=== PATIENT | female | born 1940 | race Caucasian/White ===

== ENCOUNTER 2016-11-21 14:00 | Inpatient (IN) | payer OTHER, BC ==
[~2016-11-21] VITALS: Ht 157.5 cm; Wt 81.0 kg
[2016-11-21 14:27] LABS: CHLORIDE 101 mEq/L (99-109); POTASSIUM 4.1 mEq/L (3.7-5.4); SODIUM 143 mEq/L (136-147)
[2016-11-21 14:28] LABS: GLUCOSE 116 mg/dL (70-99)
[2016-11-21 14:30] LABS: ANION GAP 13 MEQ/L (2-14)
[2016-11-21 14:33] LABS: UREA NITROGEN (BUN) 23 mg/dL (9-23)
[2016-11-21 14:35] LABS: GFR ESTIMATE (CALCULATED) > 59 mL/min/
[2016-11-21 14:42] LABS: TROP-I INTERPRETATION NEGATIVE; TROPONIN-I 0.03 ng/mL (0.0-0.30)
[2016-11-21 14:48] LABS: BASE EXCESS 8.7 mEq/L (-3 to +3); BICARBONATE 34.4 mEq/L (22-26); CARBOXY HGB 1.5 % (0-5); COMMENTS - BLOOD GASES A+C+; METHEMOGLOBIN 0.9 % (0-1.5); PCO2 53 mm Hg (35-45); PO2 341 mm Hg (80-100); SITE RR; pH 7.42 (7.35-7.45)
[2016-11-21 14:49] LABS: DEVICE PB 890 MASK; FI02 100 %; MODE SPONT NIV; PEEP 5 CM/H20; PRES. SUPPORT 15 CM/H2O; TOTAL RESP RATE 28 resp/min
[2016-11-21 14:58] LABS: EOSINOPHIL (%) 0.1 % (0-5); HEMATOCRIT 32.7 % (36.0-46.0); IMMATURE GRANULOCYTE (%) 0.1 % (0.0-0.7); LYMPHOCYTE COUNT 1.8 K/uL (1.0-2.8); MCH 25.8 PG (29.0-34.0); MCHC 30.6 G/DL (30.0-36.0); MCV 84.5 FL (83-99); MEAN PLAT.VOLUME 9.4 uM^3 (9.5-12.4); MONOCYTE (%) 6.1 % (3-12); MONOCYTE COUNT 0.5 K/uL (0-0.8); NEUTROPHIL (%) 70.6 % (45-76); NEUTROPHIL COUNT 5.6 K/uL (1.8-6.4); PLATELET COUNT 444 K/uL (156-360); RBC DIS.WIDTH-CV 15.3 % (11.8-14.6); RBC DIS.WIDTH-SD 47.1 % (39-53); RED BLOOD COUNT 3.87 M/uL (3.80-5.20); WHITE BLOOD COUNT 7.9 K/uL (4.1-10.2)
[2016-11-21] MEDS ORDERED: VITAMIN E200 UNI2 PO (17:30)
[2016-11-21] MEDS ORDERED: THERAGRAN-M PR1 EAC1 PO (17:31)
[2016-11-21] MEDS ORDERED: OMEPRAZOLE20 M2 PO (17:31)
[2016-11-21] MEDS ORDERED: KLOR-CON M2020 MEQ PO (17:32)
[2016-11-21] MEDS ORDERED: CO Q-10100 MG PO (17:34)
[2016-11-21] MEDS ORDERED: VITAMIN B-6100 MG PO (17:34)
[2016-11-21] MEDS ORDERED: VITAMIN B CO1 TABLET PO (17:37)
[2016-11-21] MEDS ORDERED: COREG12.5 M1 PO (17:38)
[2016-11-21] MEDS ORDERED: VITAMIN D-32000 UNI2 PO (17:39)
[2016-11-21] MEDS ORDERED: FOLIC ACID1 MG PO (17:40)
[2016-11-21] MEDS ORDERED: IRON325 M1 PO (17:40)
[2016-11-21] MEDS ORDERED: FLORASTOR250 MG PO (17:41)
[2016-11-21] MEDS ORDERED: NEURONTIN100 MG PO (17:41)
[2016-11-21] MEDS ORDERED: MELATIN3 MG PO (17:42)
[2016-11-21] MEDS ORDERED: MAGOX 400400 MG PO (17:42)
[2016-11-21] MEDS ORDERED: FUROSEMIDE40 MG PO (17:43)
[2016-11-21] MEDS ORDERED: ATORVASTATIN CA20 MG PO (17:44)
[2016-11-21] MEDS ORDERED: COREG6.25 M1 PO (17:44)
[2016-11-21] MEDS ORDERED: EXTRA STRENGTH500 M1 PO (17:45)
[2016-11-21] MEDS ORDERED: TYLENOL REGULA325 MG PO (17:46)
[2016-11-21] MEDS ORDERED: DULCOLAX10 MG PR (17:47)
[2016-11-21] MEDS ORDERED: FLEET ENEMA-AD118 ML PR (17:48)
[2016-11-21] MEDS ORDERED: MILK OF MAGN PO (17:49)
[2016-11-21] MEDS ORDERED: DUONEB 2.5-0.5 M3 ML AEROSOL (17:50)
[2016-11-21 21:27] VITALS: BP 161/71
[2016-11-21 23:06] LABS: INFLUENZA A VIRAL ANTIGEN NEGATIVE; INFLUENZA B VIRAL ANTIGEN NEGATIVE
[2016-11-22] VITALS (7 sets, daily range): BP systolic 105–155; BP diastolic 56–80
[2016-11-22 00:15] LABS: ADD MIUA? YES; BILIRUBIN NEGATIVE; BLOOD SMALL; COLOR YELLOW ((YELLOW)); GLUCOSE (STRIP) NEGATIVE; KETONES 5; LEUKOCYTES NEGATIVE; NITRITE NEGATIVE; PROTEIN (STRIP) NEGATIVE; SPECIFIC GRAVITY 1.013 (1.000-1.030); UROBILINOGEN 0.2 MG/DL (0.2-1.0)
[2016-11-22 00:20] LABS: BACTERIA NONE SEEN /HPF; EPITHELIAL CELLS RARE /HPF; MUCUS TRACE /LPF; RED BLOOD CELLS 0-5 /HPF (0-5); UCUL ADDED? NO; WHITE BLOOD CELLS 0-5 /HPF (0-5)
[2016-11-22 02:00] LABS: METH RESISTANT S AUREUS PCR POSITIVE (NEGATIVE)
[2016-11-22 02:04] LABS: PROBE CHECK PASS
[2016-11-22 07:18] LABS: ALKALINE PHOSPHATASE 61 IU/L (3-129); ANION GAP 11 MEQ/L (2-14); CHLORIDE 98 MEQ/L (99-109); GFR ESTIMATE (CALCULATED) 58 mL/min/; GLUCOSE 113 mg/dL (70-99); SAMPLE HEMOLYSIS CHECK 0; SAMPLE ICTERIC CHECK 0; SAMPLE LIPEMIA CHECK 0; SODIUM 143 MEQ/L (136-147); TOTAL BILIRUBIN 0.6 MG/DL (0.0-1.0); UREA NITROGEN (BUN) 32 mg/dL (9-23)
[2016-11-22 08:38] LABS: INTERNAL CONTROL VALID? YES
[2016-11-23 04:00] VITALS: BP 130/56
[2016-11-23 07:06] LABS: HEMATOCRIT 29.6 % (36.0-46.0); MCH 25.9 PG (29.0-34.0); MCHC 30.7 G/DL (30.0-36.0); MCV 84.3 FL (83-99); MEAN PLAT.VOLUME 9.1 uM^3 (9.5-12.4); PLATELET COUNT 376 K/uL (156-360); RBC DIS.WIDTH-CV 15.7 % (11.8-14.6); RBC DIS.WIDTH-SD 48.3 % (39-53); RED BLOOD COUNT 3.51 M/uL (3.80-5.20); WHITE BLOOD COUNT 5.6 K/uL (4.1-10.2)
[2016-11-23 07:23] LABS: ANION GAP 7 MEQ/L (2-14); CHLORIDE 98 MEQ/L (99-109); GFR ESTIMATE (CALCULATED) 43 mL/min/; GLUCOSE 86 mg/dL (70-99); MAGNESIUM 1.7 mg/dl (1.3-2.7); POTASSIUM 3.5 MEQ/L (3.7-5.4); SAMPLE HEMOLYSIS CHECK 0; SAMPLE ICTERIC CHECK 0; SAMPLE LIPEMIA CHECK 0; SODIUM 143 MEQ/L (136-147); UREA NITROGEN (BUN) 38 mg/dL (9-23)
[2016-11-23 07:50] VITALS: BP 132/58
[2016-11-23 11:46] VITALS: BP 108/52
[2016-11-23 15:13] VITALS: BP 136/60
[2016-11-23 20:35] VITALS: BP 122/47
[2016-11-24] VITALS (7 sets, daily range): BP systolic 123–161; BP diastolic 41–82
[2016-11-25 04:22] VITALS: BP 157/67
[2016-11-25 07:08] LABS: HEMATOCRIT 30.8 % (36.0-46.0); MCH 27.2 PG (29.0-34.0); MCHC 32.1 G/DL (30.0-36.0); MCV 84.6 FL (83-99); MEAN PLAT.VOLUME 9.3 uM^3 (9.5-12.4); PLATELET COUNT 395 K/uL (156-360); RBC DIS.WIDTH-CV 15.4 % (11.8-14.6); RBC DIS.WIDTH-SD 47.8 % (39-53); RED BLOOD COUNT 3.64 M/uL (3.80-5.20); WHITE BLOOD COUNT 6.4 K/uL (4.1-10.2)
[2016-11-25 07:33] LABS: ANION GAP 8 MEQ/L (2-14); CHLORIDE 99 MEQ/L (99-109); GFR ESTIMATE (CALCULATED) 43 mL/min/; GLUCOSE 84 mg/dL (70-99); MAGNESIUM 1.7 mg/dl (1.3-2.7); POTASSIUM 3.1 MEQ/L (3.7-5.4); SAMPLE HEMOLYSIS CHECK 0; SAMPLE ICTERIC CHECK 0; SAMPLE LIPEMIA CHECK 0; SODIUM 144 MEQ/L (136-147); UREA NITROGEN (BUN) 41 mg/dL (9-23)
[2016-11-25 07:38] VITALS: BP 132/70
[2016-11-25 11:16] VITALS: BP 109/52
[2016-11-25 14:29] VITALS: BP 124/72
[2016-11-25] MEDS ORDERED: PREDNISONE20 MG PO (15:21)
[2016-11-25] MEDS ORDERED: FUROSEMIDE40 MG PO (15:22)
[2016-11-25] MEDS ORDERED: LEVOFLOXACIN500 MG PO (15:23)
== END 2016-11-25 19:30 | DRG 189 ==
LOC: EME 14:00 → EDOF 19:19 → 4EAST 19:19
PROVIDERS: Emergency Medicine; Internal Medicine; Physician Assistant
PROC: 5A09357 Assistance with Respiratory Ventilation, Less than 24 Consecutive Hours, Continuous Positive Airway Pressure (ICD-10-PCS; principal; 2016-11-21)
PROC: 8E0ZXY6 Isolation (ICD-10-PCS; 2016-11-22)
DX: J96.01 Acute respiratory failure with hypoxia (principal); J18.9 Pneumonia, unspecified organism; I50.32 Chronic diastolic (congestive) heart failure; E87.2 Acidosis; J90 Pleural effusion, not elsewhere classified; I13.0 Hypertensive heart and chronic kidney disease with heart failure and stage 1 through stage 4 chronic kidney disease, or unspecified chronic kidney disease; I35.0 Nonrheumatic aortic (valve) stenosis; R32 Unspecified urinary incontinence; E78.5 Hyperlipidemia, unspecified; G47.33 Obstructive sleep apnea (adult) (pediatric); M06.9 Rheumatoid arthritis, unspecified; N18.9 Chronic kidney disease, unspecified; D64.9 Anemia, unspecified; K21.9 Gastro-esophageal reflux disease without esophagitis; K59.00 Constipation, unspecified; E66.01 Morbid (severe) obesity due to excess calories; Z68.32 Body mass index [BMI] 32.0-32.9, adult; Z88.1 Allergy status to other antibiotic agents; Z88.2 Allergy status to sulfonamides; Z88.6 Allergy status to analgesic agent; Z99.81 Dependence on supplemental oxygen; Z91.19 Patient's noncompliance with other medical treatment and regimen
CPT/HCPCS: 36600; 71010; 80048; 80053; 81003; 82803; 83605; 83735; 83880; 84484; 85025; 85027; 87040; 87070; 87205; 87449; 87502; 87641; 93005; 94002; 94640; 94640 76; 94660; 94668; 94760; 94799; 99202; 99281; 99284; J0456; J0692; J1644; J1940; J7050; J7512